=== PATIENT | female | born 1955 | race Caucasian/White ===

== ENCOUNTER 2021-09-17 20:16 | Emergency (ER) | payer MEDICARE ==
[2021-09-17] MEDS ORDERED: Pantoprazole 40 MG Vial IVPUSH ONE (20:37)
[2021-09-17] MEDS ORDERED: Lactated Ringers 1,000 ML IV ONE (20:40)
[2021-09-17] MEDS ORDERED: cefTRIAXone 2 GM in Sodium Chloride 0.9% 100 ML IV ONE (21:29)
[2021-09-17] MEDS ORDERED: Octreotide 500 MCG in Sodium Chloride 0.9% 499 ML IV SCH (21:30)
[2021-09-17] MEDS ORDERED: Sodium Chloride 0.9% 250 ML IV SCH (22:45)
[2021-09-17] MEDS ORDERED: Ondansetron 4 MG/2 ML SDV IVPUSH ONE (22:49)
[2021-09-17] MEDS ORDERED: Ondansetron 4 MG/2 ML SDV ONE (22:49)
== END 2021-09-17 23:25 ==
LOC: JD.ED 20:16
DX: K92.2 Gastrointestinal hemorrhage, unspecified (principal); E87.2 Acidosis; R00.0 Tachycardia, unspecified; D64.9 Anemia, unspecified; Z72.0 Tobacco use; Z20.822 Contact with and (suspected) exposure to COVID-19
CPT/HCPCS: 36415; 36430; 80053; 80307; 83605; 83690; 85025; 85610; 86850; 86900; 86901; 86922; 96365; 96368; 96375; 99285; C9113; J0696; J2354; J2405; J7040; J7050; J7120; P9016; U0002

== ENCOUNTER 2025-03-05 13:59 | Emergency (ER) | payer MEDICARE ==
[2025-03-05] MEDS ORDERED: Etomidate 2 MG/ML 20 ML SDV ONE (14:00)
[2025-03-05] MEDS: propofoL 1,000 MG/100 ML 100 ML IV SCH (14:20)
[2025-03-05 14:42] LABS: BASE EXCESS ARTERIAL -8.2 (-2-2.0); BICARBONATE,ARTERIAL 19.3 meq/L (22.0-26.0); O2 SATURATION ARTERIAL 93.9 % (96.0-97.0); PCO2 ARTERIAL 46.0 mmHg (35.0-45.0); PO2 ARTERIAL 73.0 mmHg (80.0-100.0)
[2025-03-05] MEDS: VANCOmycin 1.5 GM/300 ML 1.5 GM in Premix Bag 1 BAG IV STA (14:42)
[2025-03-05 14:43] LABS: PATIENT RESPIRATORY RATE 16.0 /MIN
[2025-03-05 14:46] LABS: BASOPHILS ABSOLUTE AUTO 0.1 K/mm3 (0.0-0.2); BASOPHILS PERCENT AUTO 1.0 % (0.0-1.0); EOSINOPHILS ABSOLUTE AUTO 0.0 K/mm3 (0.0-0.4); EOSINOPHILS PERCENT AUTO 0.4 % (0.0-6.0); IMMATURE GRAN ABSOLUTE AUTO 0.07 K/mm3 (0.00-0.05); IMMATURE GRAN PERCENT AUTO 1.4 % (0.0-0.4); LYMPHOCYTES ABSOLUTE AUTO 1.0 K/mm3 (1.0-4.8); LYMPHOCYTES PERCENT AUTO 19.4 % (24.0-44.0); MEAN PLATELET VOLUME 10.8 fl (9.4-12.3); MONOCYTES ABSOLUTE AUTO 0.2 K/mm3 (0.0-0.8); MONOCYTES PERCENT AUTO 4.5 % (0.0-8.0); NEUTROPHILS ABSOLUTE AUTO 3.7 K/mm3 (1.8-7.7); NEUTROPHILS PERCENT AUTO 73.3 % (41.0-71.0); NRBC ABSOLUTE 0.48 (0.00-0.02); NRBC PERCENT 9.4 % (0.0-0.2); PLATELET COUNT,PLT 109 K/mm3 (150-400); RED BLOOD CELL COUNT 4.06 M/mm3 (4.10-5.30); WHITE BLOOD CELL COUNT,WBC 5.10 K/mm3 (3.9-11.3)
[2025-03-05 14:52] LABS: INR 1.74
[2025-03-05 14:58] LABS: APPEARANCE,URINE CLOUDY (Clear); GLUCOSE,URINE NEGATIVE (Negative); OCCULT BLOOD,URINE 2+ (Negative)
[2025-03-05 15:04] LABS: A/G RATIO 0.4 (1-2); ALANINE AMINOTRANSFERASE,ALT 80 U/L (14-59); ASPARTATE AMNIOTRANSFERASE,AST 196 U/L (15-37); BILIRUBIN TOTAL 4.6 mg/dL (0.2-1.0); BLOOD UREA NITROGEN,BUN 59 mg/dL (7-18); CARBON DIOXIDE,CO2 23 mEq/L (21-32); CHLORIDE,CL 106 mEq/L (98-107); ESTIMATED GFR 21 mL/min (>60); SODIUM,NA 139 mEq/L (136-145)
[2025-03-05 15:05] LABS: CREATINE KINASE,CK 1476 U/L (26-192)
[2025-03-05 15:07] LABS: CREATININE 2.4 mg/dL (0.55-1.02); ETHANOL BLOOD MEDICAL 0.00 gm% (0.00); GLUCOSE RANDOM 107 mg/dL (70-99); TROPONIN I HIGH SENSITIVITY 21368 pg/mL (<=51)
[2025-03-05 15:08] LABS: POTASSIUM,K 4.9 mEq/L (3.5-5.1); PROTEIN TOTAL,TP 7.3 g/dl (6.4-8.2)
[2025-03-05 15:09] LABS: AMPHETAMINES SCREEN, URINE NEGATIVE (CUTOFF=500); BUPRENORPHINE SCREEN,URINE PRESUMPTIVE POSITIVE (CUTOFF=10); METHADONE SCREEN, URINE NEGATIVE (CUTOFF=200); METHAMPHETAMINES SCREEN, URINE NEGATIVE (CUTOFF=500); OXYCODONE SCREEN,URINE NEGATIVE (CUT0FF=100); THC SCREEN,URINE 20 NG/ML NEGATIVE (CUTOFF=50)
[2025-03-05 15:15] LABS: SQUAMOUS EPITHELIAL CELLS,UR 0-5 /hpf (0-5)
[2025-03-05 16:04] LABS: BASE EXCESS ARTERIAL -9.7 (-2-2.0); BICARBONATE,ARTERIAL 18.0 meq/L (22.0-26.0); O2 SATURATION ARTERIAL 91.6 % (96.0-97.0); PCO2 ARTERIAL 45.0 mmHg (35.0-45.0); PO2 ARTERIAL 69.0 mmHg (80.0-100.0)
[2025-03-05] MEDS: Heparin Sodium/D5W 250 ML IV SCH (16:23)
[2025-03-05] MEDS: propofoL 1,000 MG/100 ML 100 ML ONE (17:54)
[2025-03-05] MEDS: Heparin Sodium 5,000 Units/ML Vial ONE (17:55)
[2025-03-05] MEDS: Heparin Sodium/D5W 250 ML ONE (17:57)
== END 2025-03-05 17:00 ==
LOC: JD.ED 13:59
DX: J69.0 Pneumonitis due to inhalation of food and vomit (principal); K70.31 Alcoholic cirrhosis of liver with ascites; M62.82 Rhabdomyolysis; I21.4 Non-ST elevation (NSTEMI) myocardial infarction; J96.01 Acute respiratory failure with hypoxia; G93.41 Metabolic encephalopathy
CPT/HCPCS: 31500; 36415; 36556; 36600; 51702; 70450; 71045; 80053; 80143; 80306; 80307; 81001; 82550; 82803; 83605; 83690; 83735; 83880; 84484; 85025; 85610; 87040; 87070; 87077; 87154; 87186; 87205; 93005; 96365; 96366; 96368; 96375; 99285; J0692; J1644; J2543; J2704; J3372; J3490; J7030; 93010; 99291